=== PATIENT | female | born 1960 | race Two or more races ===

== ENCOUNTER 2017-06-24 19:56 | Emergency (ER) | payer OTHER ==
[~2017-06-24] VITALS: Ht 157.5 cm; Wt 75.7 kg
[~2017-06-24 19:56] MED LIST: NITROFURANTOIN100 M2 ORAL; PHENAZOPYRIDIN200 MG ORAL
[2017-06-24 20:40] VITALS: BP 137/60
--- NOTE | 2017-06-24 21:09 | Emergency Room Report ---
History of Present Illness General Chief Complaint: Vomiting Source: Patient Present Illness HPI [id number] walk-in with 2 weeks intermittent LUQ abd pain radiating to left flank and back. Progressively worse. Assoc with gas, bloating. On day 4 of Tx for UTI with levofloxacin 500mg once daily History of DM No other surgical history Pain not worse with food. 5/10, sharp, burning pain. Told her PMD about it who said it was "gas." Allergies: Coded Allergies: No Known Allergies (Unverified , 07/27/16) Patient History Past Medical History: DM Past Surgical History: none Pertinent Family History: none Social History: Denies: alcohol use, drug use, smoking Now: No Immunizations: UTD Reviewed Nursing Documentation: PMH: Agreed, PSxH: Agreed Nursing Documentation-PMH Hx Diabetes: Yes Review of Systems All Other Systems: negative except mentioned in HPI Physical Exam Vital Signs Date Time Temp Pulse Resp B/P Pulse Ox O2 Delivery O2 Flow Rate FiO2 06/24/17 20:30 98.2 78 16 137/60 98 Sp02 EP Interpretation: reviewed, normal General Appearance: normal inspection, well appearing, no apparent distress, alert, GCS 15, non-toxic, other - Well appearing lady sitting in [employer] Head: normocephalic, atraumatic Eyes: bilateral eye EOMI, bilateral eye PERRL ENT: normal ENT inspection, hearing grossly normal, normal voice Neck: normal inspection, full range of motion, supple, no bony tend Respiratory: normal inspection, lungs clear, normal breath sounds, no respiratory distress, no retraction, no wheezing Cardiovascular #1: regular rate, rhythm, no edema Gastrointestinal: normal inspection, normal bowel sounds, non tender, soft, no guarding, no hernia Genitourinary: no CVA tenderness Musculoskeletal: normal inspection, back normal, normal range of motion, Dana' s Sign negative Neurologic: normal inspection, alert, oriented x3, responsive, 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 H&h stable. UA with WBCs. LFTs normal Improved with IV pepcid, morphine Abd remains serially non-tender, non-focal Unlikely AMI given 2 weeks of symptoms, troponin 0, ECG non-ischemic. Unlikely dissection/aneurysm given 2 weeks of symptoms, stable vitals, non- focal abdomen No blood in urine to signify renal colic Tolerating PO Advised continue Levo for UTI Rx Pepcid for acid reflux given likely known GERD/acid reflux/gastritis DC home with PMD followup Last Vital Signs Date Time Temp Pulse Resp B/P Pulse Ox O2 Delivery O2 Flow Rate FiO2 06/24/17 20:30 98.2 78 16 137/60 98 Status: improved Disposition: HOME, SELF-CARE TIFFANY VÁSQUEZ M.D. Jun 24, 2017 21:09
[2017-06-24] MEDS ORDERED: Famotidine 20 MG/ 2ML VIAL IVP ONE (21:15)
[2017-06-24 23:06] LABS: APPEARANCE,URINE CLEAR; KETONES,URINE NEGATIVE (NEGATIVE); LEUKOCYTE ESTERASE ,URINE 1+ (NEGATIVE); LYMPHOCYTES % (AUTO) 35.9 % (20.0-45.0); MEAN CORPUSCULAR HEMOGLOBIN 30.9 PG (27.0-31.0); MEAN CORPUSCULAR HGB CONC 34.5 G/DL (32.0-36.0); MEAN CORPUSCULAR VOLUME 89 FL (80-99); MEAN PLATELET VOLUME 9.6 FL (6.5-10.1); MONOCYTES % (AUTO) 6.7 % (1.0-10.0); NEUTROPHILS % (AUTO) 55.4 % (45.0-75.0); NITRITE,URINE NEGATIVE (NEGATIVE); PH,URINE 5 (4.5-8.0); PLATELET COUNT 228 K/UL (150-450); PROTEIN,URINE NEGATIVE (NEGATIVE); RED BLOOD COUNT 5.03 M/UL (4.20-5.40); RED CELL DISTRIBUTION WIDTH 12.2 % (11.6-14.8); UROBILINOGEN,URINE NORMAL MG/DL (0.0-1.0); WHITE BLOOD COUNT 10.5 K/UL (4.8-10.8)
[2017-06-24 23:14] LABS: RBC,URINE 0-2 /HPF (0 - 2); SQUAMOUS EPITHELIAL CELL,UR MODERATE /LPF (NONE/OCC)
[2017-06-24 23:15] LABS: BACTERIA,URINE MODERATE /HPF
[2017-06-24 23:31] LABS: TROPONIN I < 0.30 ng/mL (<=0.30)
[2017-06-24 23:34] LABS: ALANINE AMINOTRANSFERASE 20 U/L (3-33); ALBUMIN/GLOBULIN RATIO 1.3 (1.0-2.7); ANION GAP 14 (5-15); ASPARTATE AMINO TRANSFERASE 19 U/L (5-40); CALCIUM 9.6 mg/dL (8.6-10.2); CARBON DIOXIDE 23 mEQ/L (20-30); CHLORIDE 98 mEQ/L (98-107); CREATININE 0.7 mg/dL (0.5-0.9); GLOMERULAR FILTRATION RATE > 60 mL/min (>60); HEMOLYSIS 12; LIPASE 29 U/L (< 60); POTASSIUM 3.7 mEQ/L (3.4-4.9); SODIUM 135 mEQ/L (135-145); TOTAL PROTEIN 7.1 g/dL (6.6-8.7)
[2017-06-24] MEDS ORDERED: PEPCID20 MG ORAL (23:51)
[2017-06-25] MEDS ORDERED: Morphine Sulfate 2mg/ml Inj IVP ONE
[2017-06-25 00:05] VITALS: BP 137/60
--- NOTE | 2017-06-27 08:18 | Cardiology Report ---
APPROVED REPORT EKG Measurement Heart [id number] Normal sinus rhythm Normal ECG
== END 2017-06-25 00:05 | disposition home or self-care (01) ==
LOC: EMR 21:08
DX: R10.12 Left upper quadrant pain (principal); N30.00 Acute cystitis without hematuria; E11.9 Type 2 diabetes mellitus without complications
CPT/HCPCS: 36415; 80053; 81003; 83690; 84484; 85025; 87086; 93005; 96374; 96375; 99284; J2270; J2405; S0028

== ENCOUNTER 2017-11-19 23:50 | Emergency (ER) | payer MEDICAID, OTHER ==
[~2017-11-19] VITALS: Ht 134.6 cm; Wt 77.1 kg
[~2017-11-19 23:50] MED LIST changes: +PEPCID20 MG ORAL
[2017-11-20 00:15] VITALS: BP 140/78
[2017-11-20] MEDS ORDERED: cefTRIAXone 1 GM in NS 55 ML IVPB ONE (00:15)
--- NOTE | 2017-11-20 00:18 | Emergency Room Report ---
History of Present Illness General Chief Complaint: Female Urogenital Problems Source: Patient Present Illness HPI Is a 57-year-old female with a history of UTI in the past. She present with dysuria and frequency for last 2 days. She saw her DrAnnette yesterday prescribe Macrobid. She took 2 doses her ready. She came in today because increasing pain and hematuria. No nausea no vomiting. Pain is a 10. Similar symptom in the past. Allergies: Coded Allergies: No Known Allergies (Unverified , 07/27/16) Patient History Past Medical History: see triage record, old chart reviewed Past Surgical History: other Pertinent Family History: none Social History: Denies: smoking Now: No Immunizations: other Reviewed Nursing Documentation: PMH: Agreed, PSxH: Agreed Nursing Documentation-PMH Past Medical History: No History, Except For Hx Diabetes: Yes Review of Systems Eye: Denies: eye pain, blurred vision ENT: Denies: ear pain, nose congestion, throat swelling Respiratory: Denies: cough, shortness of breath Cardiovascular: Denies: chest pain, palpitations Gastrointestinal: Denies: abdominal pain, diarrhea, nausea, vomiting Genitourinary: Reports: dysuria, frequency, hematuria Musculoskeletal: Denies: back pain, joint pain Skin: Denies: rash Neurological: Denies: headache, numbness Endocrine: Denies: increased thirst, increased urine Hematologic/Lymphatic: Denies: easy bruising All Other Systems: negative except mentioned in HPI Physical Exam Vital Signs Date Time Temp Pulse Resp B/P (MAP) Pulse Ox O2 Delivery O2 Flow Rate FiO2 11/20/17 00:00 98.4 87 16 140/78 99 Room Air vital is normal Sp02 EP Interpretation: reviewed, normal General Appearance: well appearing, no apparent distress, alert Head: normocephalic, atraumatic Eyes: bilateral eye PERRL, bilateral eye EOMI ENT: hearing grossly normal, normal pharynx Neck: full range of motion, supple, no meningismus Respiratory: chest non-tender, lungs clear, normal breath sounds Cardiovascular #1: regular rate, rhythm, no murmur Gastrointestinal: normal bowel sounds, non tender, no mass, no organomegaly, no bruit, non-distended Musculoskeletal: back normal, gait/station normal, normal range of motion Psychiatric: mood/affect normal Skin: warm/dry Medical Decision Making Diagnostic Impression: Primary Impression: UTI (urinary tract infection) Qualified Codes: N30.01 - Acute cystitis with hematuria ER Course Patient presents with UTI. We'll switch antibiotics aspirate IV Rocephin given here. No evidence of pyelonephritis or sepsis. Patient felt better now. Last Vital Signs Date Time Temp Pulse Resp B/P (MAP) Pulse Ox O2 Delivery O2 Flow Rate FiO2 11/20/17 00:00 98.4 87 16 140/78 99 Room Air Status: improved Disposition: HOME, SELF-CARE Condition: Stable Scripts Levofloxacin* (LEVAQUIN*) 500 Mg Tablet 500 MG ORAL DAILY, #7 TAB Prov: MAGNOLIA TORRES M.D. 11/20/17 Patient Instructions: Urinary Tract Infection Additional Instructions: Followup with your Dr. in 2-3 days if not better. Return if worse. MAGNOLIA TORRES M.D. Nov 20, 2017 00:18
[2017-11-20 00:58] LABS: APPEARANCE,URINE CLOUDY; BILIRUBIN, URINE NEGATIVE (NEGATIVE); GLUCOSE, URINE (UA) 4+ (NEGATIVE); KETONES,URINE 2+ (NEGATIVE); LEUKOCYTE ESTERASE ,URINE 3+ (NEGATIVE); NITRITE,URINE NEGATIVE (NEGATIVE); PH,URINE 5 (4.5-8.0); PROTEIN,URINE 3+ (NEGATIVE); UROBILINOGEN,URINE NORMAL MG/DL (0.0-1.0)
[2017-11-20 01:00] LABS: COLOR,URINE BROWN
[2017-11-20] MEDS ORDERED: LEVAQUIN500 MG ORAL (01:21)
[2017-11-20 01:30] VITALS: BP 140/78
== END 2017-11-20 01:30 | disposition home or self-care (01) ==
LOC: EMR 11-20 00:05
DX: N39.0 Urinary tract infection, site not specified (principal); R31.9 Hematuria, unspecified; E11.9 Type 2 diabetes mellitus without complications
CPT/HCPCS: 81003; 87086; 96365; 99284; J0696